=== PATIENT | male | born 1940 | race Caucasian/White ===

== ENCOUNTER → 2021-06-12 | Outpatient (REF) ==
[2021-06-12 13:40] LABS: ALBUMIN 3.9 g/dL (3.4-4.8); POTASSIUM 3.8 mmol/L (3.5-5.1)
[2021-06-12 13:42] LABS: CALCIUM 10.5 mg/dL (8.3-10.5)
[2021-06-12 13:43] LABS: TOTAL PROTEIN 7.1 g/dL (6.2-8.1)
[2021-06-12 13:45] LABS: TOTAL BILIRUBIN 1.4 mg/dL (0.2-1.2)
== END ==
LOC: LAB 11:46
DX: Z01.89 Encounter for other specified special examinations (principal)